=== PATIENT | male | born 1975 ===

== ENCOUNTER → 2021-10-28 12:16 | Outpatient (CLI) | payer SELFPAY ==
[2021-10-30 16:28] LABS: QuantiFERON Mitogen Value >10.00 IU/mL (.); QuantiFERON Nil Value 0.05 IU/mL (.); QuantiFERON TB Gold Plus Negative (Negative); QuantiFERON TB1 Ag Value 0.24 IU/mL (.); QuantiFERON TB2 Ag Value 0.37 IU/mL (.)
== END ==
DX: Z02.1 Encounter for pre-employment examination (principal)
CPT/HCPCS: 36415; 86480